=== PATIENT | female | born 1950 | race Two or more races ===

== ENCOUNTER 2021-06-17 16:32 | Emergency (ER) | payer OTHER ==
[2021-06-17 16:48] VITALS: BP 131/78; PULSE 66; TEMP 98.1; BMI 26.1
== END 2021-06-17 20:48 | disposition home or self-care (01) ==
LOC: JER 16:32
DX: J06.9 Acute upper respiratory infection, unspecified (principal); R05.1 Acute cough; Z11.52 Encounter for screening for COVID-19
CPT/HCPCS: 71046-TC-FY; 99284-25; C9803; U0003; U0005